=== PATIENT | female | born 1955 | race Caucasian/White ===

== ENCOUNTER → 2017-02-24 | Outpatient (CLI) | payer OTHER ==
[~2017-02-24] MED LIST: Z.0.NO CURRENT MEDS
[2017-02-24 07:55] LABS: BLOOD GAS CARBOXYHEMOGLOBIN 9.2 % (0-4); BLOOD GAS HCO3 25 mmol/L (22-26); BLOOD GAS O2 HGB SATURATION 87 % (90-100); BLOOD GAS OXYGEN CONTENT 21.5 Vol % (12.0-20.0); BLOOD GAS PCO2 40 mmHG (38-42); BLOOD GAS PO2 83 mmHG (61-120); BLOOD GAS TOTAL HGB 17.5 G/DL (12.0-16.0); TEMP CORR TO 98.6
[2017-02-24 07:56] LABS: CRITICAL VALUE YES; DRAW SITE RT RADIAL; FIO2 21 %; NUMBER OF ARTERIAL PUNCTURES 1; STAT NO; ULNAR PULSE PRESENT
--- NOTE | 2017-03-11 11:26 | RSPPFT ---
DATE OF PROCEDURE: 02/24/17 COMMENTS: Spirometry shows FVC of 1.1 at 39% of predicted, FEV1 of 0.4 at 18%, FEV1/FVC ratio is decreased. Flow is decreased at FEF 25, FEF 50, FEF 75 and FEF 25-75. There is a good response after acutely inhaled bronchodilator treatment. Lung volumes show residual volume is increased. TLC is normal. Diffusion capacity is decreased. Flow volume loop indicates an obstructive pattern. Room air arterial blood gases show pH of 7.40, PCO2 of 40, PO2 of 83, BiCarb of 25 and O2 Saturation at 87%. IMPRESSION: 1. Very severe obstructive lung disease. 2. Good response after bronchodilator treatment. 3. Lung volumes show hyperinflation and air trapping. 4. Moderate loss in diffusion capacity. 5. Blood gases show hypoxia on room air.
== END ==
LOC: PHRSP 07:30
PROVIDERS: ATTEND Specialist
DX: J44.9 Chronic obstructive pulmonary disease, unspecified (principal)
CPT/HCPCS: 36600; 82805; 94060; 94726; 94729